=== PATIENT | female | born 1965 | race Caucasian/White ===

== ENCOUNTER 2021-05-26 08:58 | Emergency (ER) | payer BC ==
[2021-05-26 09:44] LABS: Absolute Lymphocytes (CBC) 1.8 K/uL (0.7-4.9); Basophils % 0.6 % (0-1.3); Hematocrit 40.8 % (36.0-45.0); Lymphocytes % 48.9 % (15.3-44.8); MPV 8.3 fL (7.6-11.3); RBC Red Blood Cell Count 4.44 M/uL (3.86-4.86)
[2021-05-26 09:47] LABS: Protime INR 0.93
--- NOTE | 2021-05-26 09:48 | RAD REPORT ---
EXAM DESCRIPTION: CT - Ct Stroke Brain Wo Cont - 05/26/2021 9:39 am CLINICAL HISTORY: Blurred vision COMPARISON: none TECHNIQUE: Computed axial tomography of the head was obtained. All CT scans are performed using dose optimization technique as appropriate and may include automated exposure control or mA/KV adjustment according to patient size. FINDINGS: An intracranial bleed is not seen . The ventricles are normal in caliber. No extra-axial fluid collection is noted. Fluid within the sinuses/ mastoids is not seen. IMPRESSION: No acute intracranial abnormality is seen. If patient's symptoms persist MRI of the bra in would be recommended. Kiara of the emergency room was notified at approximately 9:20 a.m. May 26, 2021
[2021-05-26 09:50] LABS: Potassium 3.6 mmol/L (3.5-5.1)
[2021-05-26] MEDS ORDERED: ASPIRIN 81 MG CHEWABLE TABLET ONE (10:07)
--- NOTE | 2021-05-26 11:05 | RAD REPORT ---
EXAM DESCRIPTION: Maria A Single View05/26/2021 9:59 am CLINICAL HISTORY: Blurred vision COMPARISON: 2015 FINDINGS: The lungs appear clear of acute infiltrate. The heart is normal size IMPRESSION: No acute abnormalities displayed
[2021-05-26] MEDS ORDERED: LORAZEPAM 1 MG TABLET ONE (11:12)
--- NOTE | 2021-05-26 12:08 | RAD REPORT ---
EXAM DESCRIPTION: MRI - Brain W/Wo Cont - 05/26/2021 11:54 am CLINICAL HISTORY: Visual disturbance COMPARISON: head CT May 26, 2021 TECHNIQUE: Axial, sagittal, and coronal magnetic images of the brain were obtained. Fifteen cc Multi Catherine administered intravenously FINDINGS: No significant abnormal signal within the brain The ventricles are normal in caliber. Diffusion-weighted/ ADC mapping sequences do not demonstrate evidence of an acute infarction. No abnormal enhancement within the brain is seen. An extra-axial fluid collection is not noted. Fluid within the sinuses/mastoids is not seen IMPRESSION: No acute intracranial abnormality displayed
--- NOTE | 2021-05-26 12:18 | RAD REPORT ---
EXAM DESCRIPTION: MRI - MRA Neck W/Wo Cont - 05/26/2021 11:54 am CLINICAL HISTORY: Double vision COMPARISON: None. TECHNIQUE: Magnetic resonance angiogram of the neck was performed. Fifteen cc MultiHance was adminis tered intravenously. 3D MIPS reconstruction performed FINDINGS: Mild plaque within the common carotid, internal carotid and external carotid arteries. Left vertebral artery is dominant. The distal right vertebral artery is hypoplastic. IMPRESSION: No significant abnormalities splayed NASCET criteria used. Mild 0-49% stenosis Moderate 50-69% stenosis Severe 70-99% stenosis
--- NOTE | 2021-05-26 12:19 | RAD REPORT ---
EXAM DESCRIPTION: MRI - MRA Head Wo Cont - 05/26/2021 11:54 am CLINICAL HISTORY: Double vision COMPARISON: None. TECHNIQUE: Magnetic resonance angiogram was performed. 3D MIPS reconstruction performed FINDINGS: The anterior cerebral, middle cerebral, posterior cerebral, distal internal carotid and ba silar arteries do not demonstrate a significant stenosis. An aneurysm is not displayed. IMPRESSION: Unremarkable MRA brain.
--- NOTE | 2021-05-26 13:28 | ER ---
Nurse's Notes [facility] Name: Virgie Galarza Age: 56 yrs Sex: Female : 1965 Arrival Date: 05/26/2021 Time: 09:00 Bed 20 Private MD: Diagnosis: Other visual disturbances;Blurry vision: Bilateral -resolved Presentation: 05/26 09:06 Chief complaint: Patient states: Blurry vision to bilateral eyes, started at 0820, jl7 slowing resolving, feels pressure behind eyes, denies STEELE, denies dizziness, denies weakness. Coronavirus screen: At this time, the client does not indicate any symptoms associated with coronavirus-19. Ebola Screen: No symptoms or risks identified at this time. Initial Sepsis Screen: Does the patient meet any 2 criteria? No. Patient's initial sepsis screen is negative. Does the patient have a suspected source of infection? No. Patient's initial sepsis screen is negative. Risk Assessment: Do you want to hurt yourself or someone else? Patient reports no desire to harm self or others. Onset of symptoms was May 26, 2021 at 08:20. Care prior to arrival: None. 09:06 Method Of Arrival: Ambulatory jl7 09:06 Acuity: [place] 2 jl7 Triage Assessment: 10:32 General: Appears uncomfortable, Behavior is calm, cooperative, appropriate for age. tc5 Pain: Denies pain. Historical: - Allergies: 09:22 PENICILLINS; jl7 - Home Meds: 09:22 None [Active]; jl7 - PMHx: 09:22 None; jl7 - PSHx: 09:22 Ligation of fallopian tube; jl7 - Immunization history:: Client reports receiving the 2nd dose of the Covid vaccine, [employer]. - Social history:: Smoking status: Patient denies any tobacco usage or history of. Screenin:31 Abuse screen: Denies threats or abuse. Denies injuries from another. Nutritional tc5 screening: No deficits noted. Tuberculosis screening: No symptoms or risk factors identified. Fall Risk None identified. Assessment: 09:08 Reassessment: Pt to CT via wheelchair with GERI Boone. jl7 12:58 Reassessment: pt back from MRI. States the ativan helped.. tc5 15:45 GI: 0936 hygiene coordinator states the pt has passed swallow eval. tc5 Vital Signs: 09:06 BP 134 / 76; Pulse 64; Resp 17; Temp 98.7; Pulse Ox 100% on R/A; Weight 63.5 kg; Height jl7 5 ft. 6 in. (167.64 cm); Pain 3/10; 10:33 BP 128 / 76; Pulse 53; Resp 15; Pulse Ox 100% ; Pain 0/10; tc5 12:58 BP 113 / 74; Pulse 53; Resp 15; Pulse Ox 100% ; Pain 0/10; tc5 13:30 BP 104 / 65; Pulse 53; Resp 16; Pulse Ox 100% ; tc5 09:06 Body Mass Index 22.60 (63.50 kg, 167.64 cm) jl7 Visual Acuity: 09:36 Left Eye Visual acuity 20/13, ; Right Eye Visual acuity 20/13, ; Both Eyes Visual mt acuity 20/13; With Lenses; NIH Stroke Scale Scores: 09:25 NIHSS Score: 0 kdr ED Course: 09:00 Patient arrived in ED. mr 09:08 Triage completed. jl7 09:22 Arm band placed on right wrist. jl7 09:24 Remigio Jason MD is Attending Physician. kdr 09:36 Anum Pleitez, GERI is Primary Nurse. tc5 09:36 EKG done, by ED staff, reviewed by Remigio Jason MD. Inserted saline lock: 20 gauge in mt left antecubital area, using aseptic technique. Blood collected. 09:39 CT Stroke Brain w/o Contrast In Process Unspecified. EDMS 09:59 Stroke CXR 1 View In Process Unspecified. EDMS 10:28 Inserted saline lock: 20 gauge in right antecubital area, using aseptic technique. tc5 10:32 Patient has correct armband on for positive identification. landing scaler on. Pulse tc5 ox on. NIBP on. 10:32 No provider procedures requiring assistance completed. tc5 11:41 MRA Head Wo Cont In Process Unspecified. EDMS 11:41 Brain W/Wo Cont In Process Unspecified. EDMS 11:42 MRA Neck W/Wo Cont In Process Unspecified. EDMS 13:32 IV discontinued, intact, bleeding controlled, No redness/swelling at site. Pressure tc5 dressing applied. Administered Medications: 09:46 Drug: Aspirin 81 mg Route: PO; tc5 10:57 Drug: Ativan (LORazepam) 1 mg Route: PO; tc5 12:00 Follow up: Response: No adverse reaction tc5 Outcome: 10:32 Condition: stable tc5 13:28 Discharge ordered by . kdr 13:31 Discharged to home ambulatory. tc5 13:31 Discharge instructions given to patient. 14:06 Patient left the ED. tc5 NIH Stroke Scale - NIH Stroke Score Date: 05/26/2021 Time: 09:25 Total Score = 0 1a. Level of Consciousness (LOC) - 0(Alert) 1b. Level of Consciousness (LOC) (Month \T\ Age) - 0(Both) 1c. LOC Commands (Open \T\ Closes Eyes/Research Nutritionist) - 0(Both) 2. Best Gaze (Lateral Gaze Paresis) - 0(Normal) 3. Visual Field Loss - 0(No visual loss) 4. Facial Palsy - 0(Normal) 5a. Left Arm: Motor (10-second hold) - 0(No drift) 5b. Right Arm: Motor (10-second hold) - 0(No drift) 6a. Left Leg: Motor (5-second hold - always test supine) - 0(No drift) 6b. Right Leg: Motor (5-second hold - always test supine) - 0(No drift) 7. Limb Ataxia (finger/nose \T\ heel/masters - test with eyes open) - 0(Absent) 8. Sensory Loss (pinprick arms/legs/face) - 0(Normal) 9. Best Language: Aphasia (description/naming/reading) - 0(No aphasia) 10. Dysarthria (speech clarity - read or repeat words) - 0(Normal) 11. Extinction and Inattention (visual/tactile/auditory/spatial/personal) - 0(No abnormality) Initials: kdr Signatures: Dispatcher [employer] EDMS Remigio Jason MD MD kdr Rivera, Yissel MerrillMely RN RN Lauren Walter mt, Theresa, RN RN tc5 Corrections: (The following items were deleted from the chart) 09:24 09:22 PSHx: None; libia jlShikha 09:25 09:24 Reassessment: Pt to CT via wheelchair with GERI Boone
--- NOTE | 2021-05-26 13:28 | EDPHYS ---
Physician Documentation [facility] Name: Virgie Galarza Age: 56 yrs Sex: Female : 1965 Arrival Date: 05/26/2021 Time: 09:00 Bed 20 Private MD: ED Physician Remigio Jason HPI: 05/26 09:56 This 56 yrs old Female presents to ER via Ambulatory with complaints of kdr Vision Problem. 09:56 The patient presents to the emergency department with a vision problem, blurred vision. kdr Onset: The symptoms/episode began/occurred suddenly, at 08:30. Context: occurred at home, occurred while the patient was doing normal activity. Associated signs and symptoms: The patient has no apparent associated signs or symptoms. Severity of symptoms: At their worst the symptoms were very mild in the emergency department the symptoms have improved mildly. Patient's baseline: Neuro: alert and fully oriented, Motor: no deficits, Ambulation: walks without assistance, Speech: normal. Current symptoms: visual disturbance, blurred vision, Both eyes equally effected. The patient has not experienced similar symptoms in the past. The patient has not recently seen a physician. Patient states that she awoke this morning without any apparent difficulty with her neurologic problems. At about 8:30 AM, she noted her vision to be blurry in both eyes. Did not clear immediately. She was advised by family to seek medical evaluation at that time. She had no other deficits. She does complain of a very mild discomfort behind both eyes.. Historical: - Allergies: 09:22 PENICILLINS; jl7 - Home Meds: 09:22 None [Active]; jl7 - PMHx: 09:22 None; jl7 - PSHx: 09:22 Ligation of fallopian tube; jl7 - Immunization history:: Client reports receiving the 2nd dose of the Covid vaccine, [employer]. - Social history:: Smoking status: Patient denies any tobacco usage or history of. ROS: 09:56 Constitutional: Negative for fever, chills, and weight loss, Eyes: Negative for injury, kdr pain, redness, and discharge, ENT: Negative for injury, pain, and discharge, Neck: Negative for injury, pain, and swelling, Cardiovascular: Negative for chest pain, palpitations, and edema, Respiratory: Negative for shortness of breath, cough, wheezing, and pleuritic chest pain, Abdomen/GI: Negative for abdominal pain, nausea, vomiting, diarrhea, and constipation, Back: Negative for injury and pain, : Negative for injury, bleeding, discharge, and swelling, MS/Extremity: Negative for injury and deformity, Skin: Negative for injury, rash, and discoloration, Psych: Negative for depression, anxiety, suicide ideation, homicidal ideation, and hallucinations, Allergy/Immunology: Negative for hives, rash, and allergies, Endocrine: Negative for neck swelling, polydipsia, polyuria, polyphagia, and marked weight changes, Hematologic/Lymphatic: Negative for swollen nodes, abnormal bleeding, and unusual bruising. 09:56 Neuro: Positive for visual changes, Negative for altered mental status, dizziness, gait disturbance, headache, hearing loss, numbness, speech changes. Exam: 09:25 Eyes: Visual lion: are intact, Nystagmus: is not appreciated. kdr 09:56 Constitutional: This is a well developed, well nourished patient who is awake, alert, kdr and in no acute distress. Head/Face: Normocephalic, atraumatic. Eyes: Pupils equal round and reactive to light, extra-ocular motions intact. Lids and lashes normal. Conjunctiva and sclera are non-icteric and not injected. Cornea within normal limits. Periorbital areas with no swelling, redness, or edema. Neck: Trachea midline, no thyromegaly or masses palpated, and no cervical lymphadenopathy. Supple, full range of motion without nuchal rigidity, or vertebral point tenderness. No Meningismus. Chest/axilla: Normal chest wall appearance and motion. Nontender with no deformity. No lesions are appreciated. Cardiovascular: Regular rate and rhythm with a normal S1 and S2. No gallops, murmurs, or rubs. Normal PMI, no JVD. No pulse deficits. Respiratory: Lungs have equal breath sounds bilaterally, clear to auscultation and percussion. No rales, rhonchi or wheezes noted. No increased work of breathing, no retractions or nasal flaring. Abdomen/GI: Soft, non-tender, with normal bowel sounds. No distension or tympany. No guarding or rebound. No evidence of tenderness throughout. Back: No spinal tenderness. No costovertebral tenderness. Full range of motion. Skin: Warm, dry with normal turgor. Normal color with no rashes, no lesions, and no evidence of cellulitis. MS/ Extremity: Pulses equal, no cyanosis. Neurovascular intact. Full, normal range of motion. Neuro: Awake and alert, GCS 15, oriented to person, place, time, and situation. Cranial nerves II-XII grossly intact. Motor strength 5/5 in all extremities. Sensory grossly intact. Cerebellar exam normal. Normal gait. Psych: Awake, alert, with orientation to person, place and time. Behavior, mood, and affect are within normal limits. 09:56 ECG was reviewed by the Attending Physician. Vital Signs: 09:06 BP 134 / 76; Pulse 64; Resp 17; Temp 98.7; Pulse Ox 100% on R/A; Weight 63.5 kg; Height jl7 5 ft. 6 in. (167.64 cm); Pain 3/10; 10:33 BP 128 / 76; Pulse 53; Resp 15; Pulse Ox 100% ; Pain 0/10; tc5 12:58 BP 113 / 74; Pulse 53; Resp 15; Pulse Ox 100% ; Pain 0/10; tc5 13:30 BP 104 / 65; Pulse 53; Resp 16; Pulse Ox 100% ; tc5 09:06 Body Mass Index 22.60 (63.50 kg, 167.64 cm) jl7 NIH Stroke Scale Scores: 09:25 NIHSS Score: 0 kdr Visual Acuity: 09:36 Left Eye Visual acuity 20/13, ; Right Eye Visual acuity 20/13, ; Both Eyes Visual mt acuity 20/13; With Lenses; MDM: 09:25 Physician consultation: Jose Brooks MD was called at 09:30, was contacted at 09:30, kdr regarding consult, patient's condition, Advised not a candidate for TPA at this time. We will get an MRI and further evaluation.. 09:35 ED course: Visual acuity was noted to be normal. kdr 10:07 ED course: Patient continues to be stable in the ED. Her stroke scale was noted to be kdr 0. Will order MRI stroke protocol to visualize the posterior cortex. 13:28 Patient medically screened. kdr 18:28 Data reviewed: vital signs, nurses notes, lab test result(s), radiologic studies. kdr Counseling: I had a detailed discussion with the patient and/or guardian regarding: the historical points, exam findings, and any diagnostic results supporting the discharge/admit diagnosis, lab results, radiology results, the need for outpatient follow up. 05/26 09:33 Order name: Basic Metabolic Panel; Complete Time: 11:52 kdr 05/26 09:33 Order name: CBC with Diff; Complete Time: 11:52 kdr 05/26 09:33 Order name: Protime (+inr); Complete Time: 11:52 kdr 05/26 09:33 Order name: Ptt, Activated; Complete Time: 11:52 kdr 05/26 09:33 Order name: CT Stroke Brain w/o Contrast; Complete Time: 11:52 kdr 05/26 09:41 Order name: Glucose, Ancillary Testing; Complete Time: 11:52 EDMS 05/26 09:33 Order name: Stroke CXR 1 View; Complete Time: 12:18 kdr 05/26 09:33 Order name: EKG; Complete Time: 09:33 kdr 05/26 09:45 Order name: MRA Head Wo Cont; Complete Time: 13:10 EDMS 05/26 09:47 Order name: Brain W/Wo Cont; Complete Time: 12:18 EDMS 05/26 09:47 Order name: MRA Neck W/Wo Cont; Complete Time: 13:10 EDMS 05/26 09:33 Order name: Accucheck; Complete Time: 09:37 kdr 05/26 09:33 Order name: Cardiac monitoring; Complete Time: 09:37 kdr 05/26 09:33 Order name: EKG - Nurse/Tech; Complete Time: 09:37 kdr 05/26 09:33 Order name: IV Saline Lock; Complete Time: 09:37 kdr 05/26 09:33 Order name: Labs collected and sent; Complete Time: 09:38 kdr 05/26 09:33 Order name: NPO; Complete Time: 09:38 kdr 05/26 09:33 Order name: O2 Per Protocol; Complete Time: 09:38 kdr 05/26 09:33 Order name: O2 Sat Monitoring; Complete Time: 09:38 kdr EC:56 Rate is 53 beats/min. Rhythm is regular, Sinus bradycardia with Occasional PVCs. QRS kdr [place] is Normal. NC interval is normal. QRS interval is normal. Clinical impression: NSR w/ Non-specific ST/T Changes. Administered Medications: 09:46 Drug: Aspirin 81 mg Route: PO; tc5 10:57 Drug: Ativan (LORazepam) 1 mg Route: PO; tc5 12:00 Follow up: Response: No adverse reaction tc5 Disposition Summary: 05/26/21 13:28 Discharge Ordered Location: Home kdr Problem: new kdr Symptoms: are resolved kdr Condition: Stable kdr Diagnosis - Other visual disturbances kdr - Blurry vision: Bilateral -resolved kdr Followup: kdr - With: Private Physician - When: 2 - 3 days - Reason: If symptoms return, Further diagnostic work-up, Recheck today's complaints, Continuance of care, Re-evaluation by your physician Discharge Instructions: - Discharge Summary Sheet kdr - Blurred Vision, Adult kdr - Visual Disturbances kdr Forms: - Medication Reconciliation Form kdr - Thank You Letter kdr NIH Stroke Scale - NIH Stroke Score Date: 05/26/2021 Time: 09:25 Total Score = 0 1a. Level of Consciousness (LOC) - 0(Alert) 1b. Level of Consciousness (LOC) (Month \T\ Age) - 0(Both) 1c. LOC Commands (Open \T\ Closes Eyes/Staffing Branch Manager) - 0(Both) 2. Best Gaze (Lateral Gaze Paresis) - 0(Normal) 3. Visual Field Loss - 0(No visual loss) 4. Facial Palsy - 0(Normal) 5a. Left Arm: Motor (10-second hold) - 0(No drift) 5b. Right Arm: Motor (10-second hold) - 0(No drift) 6a. Left Leg: Motor (5-second hold - always test supine) - 0(No drift) 6b. Right Leg: Motor (5-second hold - always test supine) - 0(No drift) 7. Limb Ataxia (finger/nose \T\ heel/masters - test with eyes open) - 0(Absent) 8. Sensory Loss (pinprick arms/legs/face) - 0(Normal) 9. Best Language: Aphasia (description/naming/reading) - 0(No aphasia) 10. Dysarthria (speech clarity - read or repeat words) - 0(Normal) 11. Extinction and Inattention (visual/tactile/auditory/spatial/personal) - 0(No abnormality) Initials: kdr Signatures: Dispatcher [employer] Remigio Shay MD MD kdr Mely Merrill RN RN jl7 Anum Pleitez RN RN tc5 Corrections: (The following items were deleted from the chart) 09:22 PSHx: None; jl7 jl7 09:44 09:33 MR STROKE PROTOCOL+[id number] ordered. EDMS EDMS
[2021-05-26 14:15] VITALS: TEMP 98.7; O2SAT 100
[2021-05-26 14:19] VITALS: BP 104/65
--- NOTE | 2021-05-29 09:04 | EKG ---
Test Date: 2021-05-26 Test Time: 09:35:11 Mail Technician: VESNA MEASUREMENT RESULTS: Intervals: Rate: 53 OR: 162 QRSD: 84 QT: 434 QTc: 407 [place]: P: 80 OR: 162 QRS: 77 T: 65 INTERPRETIVE STATEMENTS: Sinus bradycardia Cannot rule out Anterior infarct, age undetermined Abnormal ECG No previous ECG available for comparison Electronically Signed On 05-29-21 08:58:02 CDT by Galindo Alcantara
== END 2021-05-26 14:06 | disposition home or self-care (01) ==
LOC: ER 08:58
DX: H53.8 Other visual disturbances (principal); Z88.0 Allergy status to penicillin
CPT/HCPCS: 93005; 85025; 80048; 36415; 85610; 82947; 85730; 70450; 71045; 70553; 70544; 70549; 99285; A9577